=== PATIENT | male | born 1955 | race Caucasian/White ===

== ENCOUNTER → 2018-01-26 12:16 | Outpatient (CLI) | payer SELFPAY ==
--- NOTE | 2018-01-26 11:05 | EKG12_ITS ---
Test Reason : PRE OP Blood Pressure : / mmHG Vent. Rate : 067 BPM Atrial Rate : 067 BPM P-R Int : 148 ms QRS Dur : 096 ms QT Int : 386 ms P-R-T Axes : 054 058 041 degrees QTc Int : 407 ms Normal sinus rhythm Normal ECG Confirmed by ELISA HOUSER [id number]), legal editor FELIX HANNA ([id number] on 02/02/2018 6:33:57 PM Referred By: Domenic Hanna Confirmed By:ELISA HOUSER
--- NOTE | 2018-01-26 12:16 | DT_ITS ---
This patient was seen during an EMR downtime January 24, 2018 - January 31, 2018. This patient may have a combination of paper and electronic documentation or all paper documentation. All documentation is viewable within the e-chart portion of [facility] for each patient visit.
== END ==
PROVIDERS: Visit Provider Orthopaedic Surgery
DX: Z79.899 Other long term (current) drug therapy (principal)
CPT/HCPCS: 93005